=== PATIENT | male | born 1925 | race Caucasian/White ===

== ENCOUNTER 2016-02-19 17:26 | Emergency (ER) | payer MEDICARE ==
[2016-02-19] MEDS ORDERED: methylPREDNISolone Sod Succ/PF 125 MG/2 ML VIAL ONE (19:15)
[2016-02-19 19:31] LABS: ALT (SGPT) 16 U/L (0-55); AST (SGOT) 17 U/L (5-34); Alkaline Phosphatase 107 U/L (40-150); Anion Gap 16 mmol/L (10-20); BUN (Urea Nitrogen) 13 mg/dL (8.4-25.7); Bilirubin, Total 0.8 mg/dL (0.2-1.2); Calc. Creatinine Clearance 0 mL/min (70-130); Calcium 9.1 mg/dL (7.8-10.44); Carbon Dioxide 22 mmol/L (23-31); Chloride 103 mmol/L (98-107); Estimated GFR-MDRD 61; Globulin 3.7 g/dL (2.4-3.5); Protein, Total 7.1 g/dL (5.8-8.1)
[2016-02-19 19:35] LABS: Troponin I 0.023 ng/mL (< 0.028)
--- NOTE | 2016-02-19 21:29 | ERRECORD ---
[facility] EMERGENCY RECORD HPI EXTREMITY (18:55 JROB) CHIEF COMPLAINT: Patient presents for evaluation of pain, Patient presents for evaluation of tenderness, Patient presents for evaluation of Left groin and Right knee. HISTORIAN: History provided by patient, 89 year old male presents with persistent pain in left groin unrelieved by Tramadol, and worsening pain and swelling in right knee. No recent injury. For left groin pain he has had xray and MRI, he believes the area imaged was his low back. He was told that the pain may be referred from low back problem. Imaging also showed non-specific lymph node enlargement. He states that his left knee was initially swollen and painful, but that improved and now his right knee has the same problem. 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 Started a gout medication yesterday with no relief. MECHANISM OF INJURY: Unknown mechanism. QUALITY: Described as similar to previous episodes. SEVERITY: Current severity of pain rated as 7/10. TIME COURSE: Gradual onset of symptoms, Symptoms are worsening. ASSOCIATED WITH: No associated alcohol use, No associated chills, Associated with decreased use, No associated distal neuro complaint, Associated with inability to ambulate, Associated with inability to bear weight, No associated open wounds, No associated tingling, Associated with warmth. EXACERBATED BY: Patient's condition exacerbated by walking. RELIEVED BY: Patient's condition relieved by nothing. ROS (18:59 JROB) CONSTITUTIONAL: Historian denies chills, denies fever. CARDIOVASCULAR: Historian denies syncope. RESPIRATORY: Historian denies cough, denies shortness of breath. GI: Historian denies nausea, denies vomiting. MUSCULOSKELETAL: Historian reports joint swelling. SKIN: warmth. NEUROLOGIC: Historian denies sensory changes. HEMO/LYMPHATIC: Historian denies abnormal blood clotting. ALLERGIC/IMMUNOLOGIC: Historian denies frequent infections. NOTES: All systems reviewed, negative except as described above. PAST MEDICAL HISTORY MEDICAL HISTORY: Notes: right wrist fx, and right femur fx, Past medical history includes gastrointestinal disease, inflammatory bowel disease: ulcerative colitis, Past medical history includes pulmonary disease, pneumonia. (17:45 BDON) MALE SURGICAL HISTORY: colon removed, Surgical history of hernia repair, Surgical history of orthopedic surgery, right knee. (17:45 BDON) PSYCHIATRIC HISTORY: No previous psychiatric history. (17:45 &a-1R&a+25V*p+0X*[id number]*c202B*c15G*c2P*p-0X&a-25V&a+1R Name: Adalid Dye : 1925 M89 MedRec: [id number] AcctNum: [id number] Prepared: Nicole Feb 19, 2016 22:06 by Interface Page 1 of 3 pMD [facility] EMERGENCY RECORD BDON) SOCIAL HISTORY: Patient drinks every day, Patient denies drug use, Patient is a former tobacco user, smoked cigarettes, Lives at home, with family. (17:45 BDON) NOTES: Nursing records reviewed, Agree with nursing records, Medication list reviewed. (19:03 JROB) KNOWN ALLERGIES No Known Drug Allergies CURRENT MEDICATIONS No recorded medications VITAL SIGNS VITAL SIGNS: BP: 128/78, Pulse: 92, Resp: 17, Temp: 99.0 (Oral), Pain: 7, O2 sat: 97, Time: 02/19/2016 17:39. (17:39 BDON) Resp: 18, Pain: 4, Time: 02/19/2016 18:55. (18:55 BDON) BP: 130/85, Pulse: 94, Resp: 20, Temp: 100.1 (Oral), Pain: 7, O2 sat: 98 on Room Air, Time: 02/19/2016 21:03. (21:03 EPIE) PHYSICAL EXAM (18:59 JROB) CONSTITUTIONAL: Vital signs reviewed, Patient afebrile, Pulse normal, Blood pressure normal, Respiratory rate normal, Patient alert and oriented to person, place and time. HEAD: Head exam normal, Head exam included findings of head atraumatic. EYES: Eye exam normal, Pupils equally round and reactive to light, Extraocular muscles intact. ENT: Pharynx exam normal, Mouth exam normal. NECK: Neck exam normal, no cervical adenopathy. RESPIRATORY CHEST: Respiratory and chest exam normal, Breath sounds clear, No wheezing, No rales, No rhonchi. CARDIOVASCULAR: Cardiovascular assessment normal, Cardiovascular exam included findings of heart rate regular rate and rhythm, Heart sounds normal. ABDOMEN MALE: Abdominal exam included findings of abdomen nontender, no distension, no peritoneal signs. UPPER EXTREMITY: Upper extremity exam normal, Upper extremity exam included findings of inspection normal. LOWER EXTREMITY: distal motor intact, distal sensory intact, Left inguinal area - severe tenderness to palpation over inguinal crease, no palpable LAD, no overlying erythema or warmth, tenderness extends distally over anteromedial thigh, no palpable cord or ecchymosis. Remainder of LLE exam is negative for acute abnormality. Right knee - moderate diffuse swelling with severe diffuse tenderness, warmth, no erythema, no ecchymosis. Remainder of RLE exam is negative for additional acute abnormality. NEURO: Neuro exam findings include patient oriented to person, place and time, no focal motor deficits, no focal sensory deficits. SKIN: no rash. &a-1R&a+25V*p+0X*r9233G*c202B*c15G*c2P*p-0X&a-25V&a+1R Name: Adalid Dye : 1925 M89 MedRec: [id number] AcctNum: [id number] Prepared: Nicole Feb 19, 2016 22:06 by Interface Page 2 of 3 D [facility] EMERGENCY RECORD MEDICATION ADMINISTRATION SUMMARY Drug Name: morphine injection, Dose Ordered: 4 mg, Route: IV Push, Status: Given, Time: 19:22 02/19/2016, Drug Name: methylPREDNISolone sodium succ injection, Dose Ordered: 125 mg, Route: IV Push, Status: Given, Time: 19:21 02/19/2016, Detailed record available in Medication Service section. DOCTOR NOTES TEXT: Right knee pain and swelling - suspect gout flare. For left groin and thigh pain, will check D-dimer with labs to consider possible DVT. Ordered Morphine for pain, Solumedrol to start anti-inflammatory treatment for gout. (19:03 JROB) D-dimer elevated, discussed with patient and his . Will proceed with transfer to [facility] for LLE ultrasound. Patient was accepted by Dr. Choudhary. (21:18 JROB) PATIENT STATUS: Patient has improved since arrival to emergency department. (21:18 JROB) PATIENT PLAN: The patient requires a transfer and will be transferred, due to availability of specialty care. (21:18 JROB) DATA REVIEWED: Lab data reviewed. (21:18 JROB) PROBLEM LIST No recorded problems DIAGNOSIS DIFFERENTIAL: Based on history, exam and ancillary studies if indicated: Impression: joint effusion, Impression: Gout, Arthritis, DVT, Lymphadenopathy, Cellulitis, Diagnoses considered are not limited to those documented above. (21:19 TONIE) FINAL: PRIMARY: LEFT thigh pain, ADDITIONAL: GOUT UNSPECIFIED. (21:21 TONIE) PRESCRIPTION No recorded prescriptions DISPOSITION PATIENT: Disposition Type: Transfer, Disposition: Transfer to [facility]. (21:21 TONIE) Patient left the department. (22:04 FIDELINA) Hirsch: AMAN=TONIO Longo, Sabine XAVIER=TONIO Shafer, Ramonita SCHILLING=MD Dylan, Parveen KITCHEN=TONIO Rojas, Harish &a-1R&a+25V*p+0X*r1160U*c202B*c15G*c2P*p-0X&a-25V&a+1R Name: Adalid Dye : 1925 M89 MedRec: [id number] AcctNum: [id number] Prepared: Nicole Feb 19, 2016 22:06 by Interface Page 3 of 3 pMD MTDD
--- NOTE | 2016-02-19 21:32 | PICIS ---
[facility] EMERGENCY RECORD TRIAGE ([place] Feb 19, 2016 17:34 BDON) PATIENT: NAME: Adalid Dye, AGE: 89, GENDER: male, : [id number], TIME OF GREET: SatFeb 19, 2016 17:27, PREFERRED LANGUAGE: Libyan, ETHNICITY: Unable to Determine, ECODE BILLING MAP: [facility] ER, SSN: [id number], Zip Code: [address], KG WEIGHT: 81.65, PHONE: , , , PERSON ID: [id number], PCP: Jemma QUINTANA C. HENRY. ([place] Feb 19, 2016 17:34 BDON) TRIAGE NOTES: Left groin, left and right knee pain, denies injury. Dr. Hagen thinks it is nerve. Pain increasing MRI of left groin and hip about a week ago at [facility] Sent to ER for pain medication / control. ([place] Feb 19, 2016 17:34 BDON) COMPLAINT: PAIN IN GROIN AND LEGS. ([place] Feb 19, 2016 17:34 BDON) ADMISSION: URGENCY: 3 Urgent, ADMISSION SOURCE: Home, TRANSPORT: Walk-in, BED: TRIAGE. ([place] Feb 19, 2016 17:34 BDON) ASSESSMENT: Assessment: Recent MRI of left groin, pain in bilateral knees, states can't get any help. ER for pain control ....Dr. Hunt told him to go to the ER for pain medications, Symptoms began greater than 1 week ago. (17:45 BDON) PROVIDERS: TRIAGE NURSE: Sabine Longo RN. ([place] Feb 19, 2016 17:34 BDON) KNOWN ALLERGIES No Known Drug Allergies CURRENT MEDICATIONS No recorded medications VITAL SIGNS VITAL SIGNS: BP: 128/78, Pulse: 92, Resp: 17, Temp: 99.0 (Oral), Pain: 7, O2 sat: 97, Time: 02/19/2016 17:39. (17:39 BDON) Resp: 18, Pain: 4, Time: 02/19/2016 18:55. (18:55 BDON) BP: 130/85, Pulse: 94, Resp: 20, Temp: 100.1 (Oral), Pain: 7, O2 sat: 98 on Room Air, Time: 02/19/2016 21:03. (21:03 EPIE) NURSING ASSESSMENT: FALL RISK (21:06 KASA) FALL RISK: Bed rest greater than 2 days (5), Impaired mobility (3), Total score 8. NURSING ASSESSMENT: HEAD-TO-TOE (18:09 BDON) CONSTITUTIONAL: Patient arrives ambulatory, History obtained from patient, Patient appears, in distress due to pain, Patient cooperative, Patient alert, Oriented to person, place and time, Skin warm, Skin dry, Skin normal in color. PAIN: bilateral knees and left groin. NEURO: Able to close eyes, Face symmetrical, Speech normal, GCS:, Eye opening: (4) - Spontaneous, Verbal: (5) - Oriented/conversive, Motor: (6) - Obeys commands/Spontaneous, GCS Total: 15. RESPIRATORY/CHEST: Respiratory assessment findings include &a-1R&a+25V*p+0X*k3317F*c202B*c15G*c2P*p-0X&a-25V&a+1R Name: Adalid Dye : 1925 M89 MedRec: [id number] AcctNum: [id number] Prepared: Nicole Feb 19, 2016 22:11 by Interface Page 1 of 8 pMD [facility] EMERGENCY RECORD respiratory effort easy, Respirations regular, Conversing normally. LEFT LOWER EXTREMITY: Notes: left groin tender to palpate Left knee pain. RIGHT LOWER EXTREMITY: Notes: right knee pain. SAFETY: Cart/Stretcher in lowest position, Hospital ID band on. NURSING ASSESSMENT: SKIN (21:08 KASA) SKIN: Skin assessment findings include skin warm, Skin dry, Skin normal in color, Inspection findings include: No pressure ulcer to the shoulder, Inspection findings include no pressure ulcer to the elbow, Inspection findings include no pressure ulcers to the hip, Inspection findings include no pressure ulcer to the sacrum, Inspection findings include no pressure ulcer to the heel, Inspection findings include no pressure ulcer, Inspection findings include no pressure ulcer, Inspection findings include swelling, to Right knee. SAFETY: Side rails up, Cart/Stretcher in lowest position, Family at bedside, Call light within reach, Hospital ID band on. NURSING PROCEDURE: BEDSIDE SIRS TESTING (21:08 KASA) SCORES: Heart Rate 55-109 (0), Temp range 96.8-101.1 (0), respiratory rate 12-24 (0), Mental Status altered: no (0). NURSING PROCEDURE: IV (19:10 MCBE) PATIENT IDENITIFIER: Patient actively involved in identification process, Patient's identity verified by patient stating name, Patient's identity verified by patient stating date, Patient's identity verified by hospital ID bracelet. IV SITE 1: IV therapy indicated for hydration, IV therapy indicated for medication administration, IV established, to the right antecubital, using a 20 gauge catheter. NOTES: Procedure done by RYANN ELIZALDE. ORDER DETAILS Order Name: Cardiac Profile w/CKMB & Troponin - I, Status: Active, Time: 18:10 02/19/2016, User: TONIE, - Ordered for: MD Richardson Joseph, - Entered by: MD Richardson Joseph - Nicole Feb 19, 2016 18:10, - Quantity: 1, Order Name: Comprehensive Metabolic Panel, Status: Active, Time: 18:10 02/19/2016, User: TONIE, - Ordered for: MD Richardson Joseph, - Entered by: MD Richardson Joseph - Nicole Feb 19, 2016 18:10, - Quantity: 1, Order Name: D-Dimer (Quantitative), Status: Active, Time: 18:10 02/19/2016, User: TONIE, - Ordered for: MD Richardson Joseph, - Entered by: MD Richardson Joseph - Nicole Feb 19, 2016 18:10, - Quantity: 1, &a-1R&a+25V*p+0X*e9011L*c202B*c15G*c2P*p-0X&a-25V&a+1R Name: Adalid Dye : 1925 M89 MedRec: [id number] AcctNum: [id number] Prepared: Nicole Feb 19, 2016 22:11 by Interface Page 2 of 8 D [facility] EMERGENCY RECORD Order Name: SALINE LOCK, Status: Done, Time: 19:23 02/19/2016, User: JOE, - Ordered for: MD Richardson Joseph, - Entered by: TONIO Longo Bettye - Nicole Feb 19, 2016 18:56, - Quantity: 1. MEDICATION ADMINISTRATION SUMMARY Drug Name: morphine injection, Dose Ordered: 4 mg, Route: IV Push, Status: Given, Time: 19:22 02/19/2016, Drug Name: methylPREDNISolone sodium succ injection, Dose Ordered: 125 mg, Route: IV Push, Status: Given, Time: 19:21 02/19/2016, Detailed record available in Medication Service section. MEDICATION SERVICE methylPREDNISolone sodium succ injection: Order: methylPREDNISolone sodium succ injection (methylprednisolone sod succ) - Dose: 125 mg : IV Push Schedule: Now Ordered by: Parveen Richardson MD Entered by: MD Nicole Tran Feb 19, 2016 18:09 , Acknowledged by: Babs Rivera Feb 19, 2016 18:19 Documented as given by: Babs Rivera Feb 19, 2016 19:21 Patient, Medication, Dose, Route and Time verified prior to administration. Amount given: 125mg, IV SITE #1 IVP, initial medication, Slowly, Awake and alert- acceptable, Catheter placement confirmed via flush prior to administration, IV site without signs or symptoms of infiltration during medication administration, No swelling during administration, No drainage during administration, IV flushed after administration, Correct patient, time, route, dose and medication confirmed prior to administration, Patient advised of actions and side-effects prior to administration, Allergies confirmed and medications reviewed prior to administration, Patient in position of comfort, Side rails up, Cart in lowest position, Family at bedside, Call light in reach. morphine injection: Order: morphine injection (morphine sulfate) - Dose: 4 mg : IV Push Schedule: Now Ordered by: Parveen Richardson MD Entered by: MD Nicole Tran Feb 19, 2016 18:09 , Acknowledged by: Babs Rivera Feb 19, 2016 18:19 Documented as given by: Babs Rivera Feb 19, 2016 19:22 Patient, Medication, Dose, Route and Time verified prior to administration. Amount given: 4mg, IV SITE #1 IVP, subsequent different medication, Slowly, Awake and alert- acceptable, Catheter placement confirmed via flush prior to administration, IV site without signs or symptoms of infiltration during medication administration, No swelling during administration, No drainage during administration, IV flushed after &a-1R&a+25V*p+0X*e8002K*c202B*c15G*c2P*p-0X&a-25V&a+1R Name: Adalid Dye : 1925 M89 MedRec: [id number] AcctNum: [id number] Prepared: Nicole Feb 19, 2016 22:11 by Interface Page 3 of 8 pMD [facility] EMERGENCY RECORD administration, Correct patient, time, route, dose and medication confirmed prior to administration, Patient advised of actions and side-effects prior to administration, Allergies confirmed and medications reviewed prior to administration, Patient in position of comfort, Side rails up, Cart in lowest position, Family at bedside, Call light in reach. HPI EXTREMITY (18:55 JROB) CHIEF COMPLAINT: Patient presents for evaluation of pain, Patient presents for evaluation of tenderness, Patient presents for evaluation of Left groin and Right knee. HISTORIAN: History provided by patient, 89 year old male presents with persistent pain in left groin unrelieved by Tramadol, and worsening pain and swelling in right knee. No recent injury. For left groin pain he has had xray and MRI, he believes the area imaged was his low back. He was told that the pain may be referred from low back problem. Imaging also showed non-specific lymph node enlargement. He states that his left knee was initially swollen and painful, but that improved and now his right knee has the same problem. 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 Started a gout medication yesterday with no relief. MECHANISM OF INJURY: Unknown mechanism. QUALITY: Described as similar to previous episodes. SEVERITY: Current severity of pain rated as 7/10. TIME COURSE: Gradual onset of symptoms, Symptoms are worsening. ASSOCIATED WITH: No associated alcohol use, No associated chills, Associated with decreased use, No associated distal neuro complaint, Associated with inability to ambulate, Associated with inability to bear weight, No associated open wounds, No associated tingling, Associated with warmth. EXACERBATED BY: Patient's condition exacerbated by walking. RELIEVED BY: Patient's condition relieved by nothing. ROS (18:59 JROB) CONSTITUTIONAL: Historian denies chills, denies fever. CARDIOVASCULAR: Historian denies syncope. RESPIRATORY: Historian denies cough, denies shortness of breath. GI: Historian denies nausea, denies vomiting. MUSCULOSKELETAL: Historian reports joint swelling. SKIN: warmth. NEUROLOGIC: Historian denies sensory changes. HEMO/LYMPHATIC: Historian denies abnormal blood clotting. ALLERGIC/IMMUNOLOGIC: Historian denies frequent infections. NOTES: All systems reviewed, negative except as described above. PAST MEDICAL HISTORY MEDICAL HISTORY: Notes: right wrist fx, and right femur fx, Past medical history includes gastrointestinal &a-1R&a+25V*p+0X*h1918F*c202B*c15G*c2P*p-0X&a-25V&a+1R Name: Adalid Dye : 1925 M89 MedRec: [id number] AcctNum: [id number] Prepared: Nicole Feb 19, 2016 22:11 by Interface Page 4 of 8 pMD [facility] EMERGENCY RECORD disease, inflammatory bowel disease: ulcerative colitis, Past medical history includes pulmonary disease, pneumonia. (17:45 BDON) MALE SURGICAL HISTORY: colon removed, Surgical history of hernia repair, Surgical history of orthopedic surgery, right knee. (17:45 BDON) PSYCHIATRIC HISTORY: No previous psychiatric history. (17:45 BDON) SOCIAL HISTORY: Patient drinks every day, Patient denies drug use, Patient is a former tobacco user, smoked cigarettes, Lives at home, with family. (17:45 BDON) NOTES: Nursing records reviewed, Agree with nursing records, Medication list reviewed. (19:03 JROB) PHYSICAL EXAM (18:59 JROB) CONSTITUTIONAL: Vital signs reviewed, Patient afebrile, Pulse normal, Blood pressure normal, Respiratory rate normal, Patient alert and oriented to person, place and time. HEAD: Head exam normal, Head exam included findings of head atraumatic. EYES: Eye exam normal, Pupils equally round and reactive to light, Extraocular muscles intact. ENT: Pharynx exam normal, Mouth exam normal. NECK: Neck exam normal, no cervical adenopathy. RESPIRATORY CHEST: Respiratory and chest exam normal, Breath sounds clear, No wheezing, No rales, No rhonchi. CARDIOVASCULAR: Cardiovascular assessment normal, Cardiovascular exam included findings of heart rate regular rate and rhythm, Heart sounds normal. ABDOMEN MALE: Abdominal exam included findings of abdomen nontender, no distension, no peritoneal signs. UPPER EXTREMITY: Upper extremity exam normal, Upper extremity exam included findings of inspection normal. LOWER EXTREMITY: distal motor intact, distal sensory intact, Left inguinal area - severe tenderness to palpation over inguinal crease, no palpable LAD, no overlying erythema or warmth, tenderness extends distally over anteromedial thigh, no palpable cord or ecchymosis. Remainder of LLE exam is negative for acute abnormality. Right knee - moderate diffuse swelling with severe diffuse tenderness, warmth, no erythema, no ecchymosis. Remainder of RLE exam is negative for additional acute abnormality. NEURO: Neuro exam findings include patient oriented to person, place and time, no focal motor deficits, no focal sensory deficits. SKIN: no rash. LAB INTERPRETATION (21:18 JROB) INTERPRETATION: I reviewed the lab results, Chemistry abnormal, Bicarbonate decreased, Chemistry otherwise normal, Cardiac enzymes normal, Liver functions normal, D-dimer, elevated. &a-1R&a+25V*p+0X*v5423A*c202B*c15G*c2P*p-0X&a-25V&a+1R Name: Adalid Dye : 1925 M89 MedRec: [id number] AcctNum: [id number] Prepared: Nicole Feb 19, 2016 22:11 by Interface Page 5 of 8 D [facility] EMERGENCY RECORD EVENTS TRANSFER: Triage to Emergency Triage. (Nicole Feb 19, 2016 17:34 BDON) Emergency Triage to Emergency Room *TR1. (17:40 BDON) Emergency Emergency Room *TR1 to Holding. (22:01 [facility]) [facility] Emergency Holding[facility] O2SAT INTERPRETATION (19:03 JROB) O2SAT: Single pulse oximetry, Oxygen saturation 97%, on room air, Oxygen saturation interpretation: Normal, No intervention required. DOCTOR NOTES TEXT: Right knee pain and swelling - suspect gout flare. For left groin and thigh pain, will check D-dimer with labs to consider possible DVT. Ordered Morphine for pain, Solumedrol to start anti-inflammatory treatment for gout. (19:03 JROB) D-dimer elevated, discussed with patient and his . Will proceed with transfer to [facility] for LLE ultrasound. Patient was accepted by Dr. Choudhary. (21:18 JROB) PATIENT STATUS: Patient has improved since arrival to emergency department. (21:18 JROB) PATIENT PLAN: The patient requires a transfer and will be transferred, due to availability of specialty care. (21:18 JROB) DATA REVIEWED: Lab data reviewed. (21:18 JROB) PROBLEM LIST No recorded problems DIAGNOSIS DIFFERENTIAL: Based on history, exam and ancillary studies if indicated: Impression: joint effusion, Impression: Gout, Arthritis, DVT, Lymphadenopathy, Cellulitis, Diagnoses considered are not limited to those documented above. (21:19 JROB) FINAL: PRIMARY: LEFT thigh pain, ADDITIONAL: GOUT UNSPECIFIED. (21:21 JROB) DISPOSITION PATIENT: Disposition Type: Transfer, Disposition: Transfer to [facility]. (21:21 JROB) Patient left the department. (22:04 LEEW) PRESCRIPTION No recorded prescriptions IMAGING (20:59 LEEW) *MEMORANDUM OF TRANSFER: Image captured from scanner. *DISCHARGE INSTRUCTIONS RECEIPT: Image captured from scanner. &a-1R&a+25V*p+0X*f6436Q*c202B*c15G*c2P*p-0X&a-25V&a+1R Name: Adalid Dye : 1925 M89 MedRec: [id number] AcctNum: [id number] Prepared: Nicole Feb 19, 2016 22:11 by Interface Page 6 of 8 pMD [facility] EMERGENCY RECORD ADMIN DIGITAL SIGNATURE: TONIO Rojas, Harish. (21:15 LEE) MD Dylan, Parveen. (21:21 JROB) RESULTS (19:39 JROB) LABORATORY: Cardiac Profile w/CKMB & TropI Collection DT: Nicole Feb 19, 2016 19:14, CKMB 1.0 ng/mL, Range (0-6.6), Troponin I 0.023 ng/mL, Range (< 0.028), Reference Range , 0.00 - 0.028 ng/mL Negative 0.029 - 0.29 ng/mL , Indeterminate Greater or Equal to 0.3 ng/mL Strongly suggests [place] , . Comprehensive Metabolic Panel Collection DT: Nicole Feb 19, 2016 19:14, Sodium 137 mmol/L, Range (136-145), Potassium 3.9 mmol/L, Range (3.5-5.1), Chloride 103 mmol/L, Range (98-107), *Carbon Dioxide 22 - L mmol/L, Range (23-31), Anion Gap 16 mmol/L, Range (10-20), BUN (Urea Nitrogen) 13 mg/dL, Range (8.4-25.7), Creatinine 1.13 mg/dL, Range (0.7-1.3), Estimated GFR-MDRD 61 , Reference Range for Estimated GFR: Greater than 90, mL/min/1.73 m2 NOTE: The MDRD equation has not been validated for use, with the elderly (over 70 years of age), women, patients with, serious comorbid condition or persons with extremes of body size, muscle, mass, or nutritional status. , Glucose 107 mg/dL, Range (83-110), Calcium 9.1 mg/dL, Range (7.8-10.44), Bilirubin, Total 0.8 mg/dL, Range (0.2-1.2), Protein, Total 7.1 g/dL, Range (5.8-8.1), NOTE: Plasma values are generally 0.3 to 0.5 g/dL higher than serum values, due to the presence of fibrinogen. , Albumin 3.4 g/dL, Range (3.4-4.8), *Globulin 3.7 - H g/dL, Range (2.4-3.5), *Alb/Glob Ratio 0.9 - L g/dL, Range (1.2-2.2), Alkaline Phosphatase 107 U/L, Range (40-150), AST (SGOT) 17 U/L, Range (5-34), ALT (SGPT) 16 U/L, Range (0-55). D-Dimer (Quantitative) Collection DT: Nicole Feb 19, 2016 19:14, *D-Dimer Test 2.28 - H *mcg/mL, Range (0.27-0.43), * Reference Range Units: mcg/mL of fibrinogen equivalent, units(FEU) Based upon a retrospective study of [facility] patients in June 2005, a result of &a-1R&a+25V*p+0X*j7618I*c202B*c15G*c2P*p-0X&a-25V&a+1R Name: Adalid Dye : 1925 89 MedRec: [id number] AcctNum: [id number] Prepared: Nicole Feb 19, 2016 22:11 by Interface Page 7 of 8 pMD [facility] EMERGENCY RECORD Less than 0.44 mcg/mL FEU is, predictive of the absence of a DVT or PE. . Hirsch: AMAN=TONIO Longo, Sabine XAVIER=TONIO Shafer, Ramonita SCHILLING=MD Dylan, Parveen DUKES=TONIO Mcgarry, Carolyn KITCHEN=TONIO Rojas, Hairsh DIAZ=Babs Gloria &a-1R&a+25V*p+0X*o3575P*c202B*c15G*c2P*p-0X&a-25V&a+1R Name: Adalid Dye : 1925 89 MedRec: [id number] AcctNum: [id number] Prepared: Nicole Feb 19, 2016 22:11 by Interface Page 8 of 8 pMD MTDD
== END 2016-02-19 20:34 | disposition short-term general hospital (02) ==
LOC: NAV ERS 17:26
DX: M10.9 Gout, unspecified (principal); M79.652 Pain in left thigh; Z87.01 Personal history of pneumonia (recurrent); Z87.891 Personal history of nicotine dependence
CPT/HCPCS: 80053; 82553; 84484; 85379; 96374; 96375; J2270; J2930